=== PATIENT | male | born 1955 | race Caucasian/White ===

== ENCOUNTER → 2017-02-10 | Outpatient (CLI) | payer BC | LOC: HEART CORB 02-05 09:15 | DX: I50.22 Chronic systolic (congestive) heart failure (principal); I42.0 Dilated cardiomyopathy ==

== ENCOUNTER → 2022-03-28 | Outpatient (CLI) | payer BC | LOC: HEART CORB 09:00 | DX: I50.22 Chronic systolic (congestive) heart failure (principal); I42.0 Dilated cardiomyopathy; I50.20 Unspecified systolic (congestive) heart failure; I08.8 Other rheumatic multiple valve diseases; I27.20 Pulmonary hypertension, unspecified | CPT/HCPCS: 93306 ==

== ENCOUNTER → 2022-05-01 | Outpatient (CLI) | payer BC ==
[~2022-05-01] MED LIST: ALDACTONE25 MG PO; BUMETANIDE0.5 MG PO; COREG3.125 MG PO; ENTRESTO 24 MG1 EACH PO; K-TAB ER20 MEQ PO; VERQUVO2.5 MG PO
[2022-05-01 07:32] LABS: HEMOGLOBIN 16.6 gm/dl (14.0-17.5); RED BLOOD COUNT 5.99 M/UL (4.20-5.50); WHITE BLOOD COUNT 6.4 K/UL (4.5-11.0)
[2022-05-01 07:52] LABS: BUN/CREATININE RATIO 25 (0-10)
== END ==
LOC: CATH 06:46
PROVIDERS: Internal Medicine Cardiovascular Disease
DX: I25.118 Atherosclerotic heart disease of native coronary artery with other forms of angina pectoris (principal); I42.8 Other cardiomyopathies; I11.0 Hypertensive heart disease with heart failure; I50.23 Acute on chronic systolic (congestive) heart failure; Z87.448 Personal history of other diseases of urinary system
CPT/HCPCS: 36415; 71045; 80048; 85025; 85610; 93005; 99152; 99153; C1769; C1894; J1644; J2250; J3010; Q9965; Q9967